=== PATIENT | male | born 1960 | race Caucasian/White ===

== ENCOUNTER → 2022-12-18 11:16 | Outpatient (BNVA) | payer OTHER, SELFPAY | PROVIDERS: PCP Internal Medicine; Visit Provider Nurse Practitioner Family | DX: R35.0 Frequency of micturition (principal); R97.20 Elevated prostate specific antigen [PSA]; Z87.898 Personal history of other specified conditions | CPT/HCPCS: 99202 ==

== ENCOUNTER 2023-01-02 09:49 | Outpatient (REF) | payer OTHER, SELFPAY ==
--- NOTE | ~2023-01-02 | US_ITS ---
EXAMINATION: US RETROPERITONEAL LIMITED (RENAL ONLY) CLINICAL INFORMATION: Frequency of micturition. COMPARISON: None available. TECHNIQUE: Real-time imaging of the kidneys. FINDINGS: RIGHT KIDNEY: 10.8 x 4.6 x 6.8 cm (SAG x AP x TRV). The kidney is normal in size, contour, and echogenicity. Renal cortical thickness is normal. No hydronephrosis. 3 mm nonobstructing calculus in the upper to midpole. Lateral midpole cyst measures 4 x 3 x 4 mm. LEFT KIDNEY: 11.0 x 7.6 x 5.1 cm (SAG x AP x TRV). The kidney is normal in size, contour, and echogenicity. Renal cortical thickness is normal. No calculi or focal parenchymal lesions. No hydronephrosis. US/US renal BI IMPRESSION: 3 mm nonobstructing right renal calculus. No hydronephrosis. Right renal cyst. No suspicious features.
== END 2023-01-02 09:50 | disposition home or self-care (01) ==
LOC: HO.US 09:49
PROVIDERS: PCP Internal Medicine; Visit Provider Nurse Practitioner Family
DX: R35.0 Frequency of micturition (principal); R97.20 Elevated prostate specific antigen [PSA]; Z87.898 Personal history of other specified conditions
CPT/HCPCS: 76775

== ENCOUNTER 2023-01-13 13:11 | Outpatient (REF) | payer OTHER, SELFPAY ==
--- NOTE | ~2023-01-13 | US_ITS ---
EXAMINATION: US PELVIS LIMITED (BLADDER) CLINICAL INFORMATION: Urinary frequency. COMPARISON: Ultrasound retroperitoneal limited (renal only) 01/02/2023. TECHNIQUE: Real-time imaging of the bladder. FINDINGS: BLADDER: Well distended and normal. Bilateral ureteral jets are demonstrated. Prevoid bladder volume is 311.5 mL. Postvoid bladder volume is 11.5 mL. ADDITIONAL FINDINGS: Prostate is enlarged with a volume of 72.4 mL. US/US bladder IMPRESSION: Prostate is enlarged with a volume of 72.4 mL.
== END 2023-01-13 13:12 | disposition home or self-care (01) ==
LOC: HO.US 13:11
PROVIDERS: PCP Internal Medicine; Visit Provider Nurse Practitioner Family
DX: R35.0 Frequency of micturition (principal); R97.20 Elevated prostate specific antigen [PSA]; Z87.898 Personal history of other specified conditions
CPT/HCPCS: 76857

== ENCOUNTER 2023-02-04 16:00 | Outpatient (REF) | payer OTHER, SELFPAY ==
[2023-02-04 19:22] LABS: PSA,Total (Free>4and<10) 4.15 ng/mL (0.00-4.00)
[2023-02-07 11:43] LABS: Free Prostate Spec Ag 0.5 ng/mL; Percent Free Prostate Spec Ag 14 % (calc) (>25); Prostate Specific Ag Total 3.6 ng/mL (< OR = 4.0)
== END 2023-02-04 16:01 | disposition home or self-care (01) ==
LOC: HO.LAB 16:00
PROVIDERS: PCP Internal Medicine; Visit Provider Nurse Practitioner Family
DX: R35.0 Frequency of micturition (principal); R97.20 Elevated prostate specific antigen [PSA]; Z87.898 Personal history of other specified conditions
CPT/HCPCS: 36415; 84153; 84154

== ENCOUNTER 2023-04-02 10:00 | Outpatient (AMB) | payer OTHER, SELFPAY ==
--- NOTE | 2023-04-02 10:14 | A.OFFVIS_ITS ---
Intake Intake Visit Reasons: 6w/US/PSA(set) Intake Note: Patient presents for follow up visit Elevated PSA/labs/ultrasound (psa 4.15) (imaging 01/02 & 01/13) Urology Medications: none Blood Thinner: none [employer] Required: No Accompanied by: Self / Same As Patient Allergies No Known Allergies Allergy (Verified 04/02/23 12:36) Medication List - Last Reconciled 04/02/23 by CASTILLO HernandezP- amlodipine 5 mg PO DAILY diclofenac sodium 50 mg PO BID finasteride 5 mg PO DAILY 90 days tamsulosin 0.4 mg PO BEDTIME 30 days HPI HPI Comments History of Present Illness Details Prosper is a very pleasant 62-year-old male patient of Dr. Rich. He has a past medical history of hypertension and spontaneous pneumothora x. He presents to the office today for follow-up. Of note, patient was seen approximately 3 months ago as a new patient for an elevated PSA at which time redraw of PSA and retroperitoneal ultrasound was ordered for further assessment evaluation. These results reviewed with the patient today. The bladder is well distended and normal. Pre void bladder volume is approximately 315 mL postvoid bladder volume is approximately 10 mL. Prostate is enlarged with a volume of 72 mL. Right kidney with no hydronephrosis. 3 mm nonobstructing calculus is in the upper to mid pole. Lateral midpole cyst measures 4 x 3 x 4 mm. Left kidney with no calculi, lesions, and or hydronephrosis noted. PSAs are as follows: 10/27--4.9 02/26--3.6 % free--14% Discussed at length potential causes for elevated PSA. When asked patient does continue to report to have urinary hesitancy, urinary urgency, and urinary frequency. He discusses drinking only coffee all day long. He otherwise denies incontinence, nocturia, hematuria, dysuria, foul smelling urine, flank pain, fever, and or chills. When asked he does report to be smoking recreational marijuana daily. He does also report issues with maintaining erections Discussed at length affects of in adequate sleep, drugs, and unhealthy eating habits on erectile dysfunction as well as overall health and well-being. In office urinalysis results reviewed with the patient today. Discussed surveillance monitoring versus prostate biopsy. Discussed at length risks and benefits of surveillance monitoring versus prostate biopsy. He otherwise offers no issues or concerns at this time. [facility] Medical History Spontaneous pneumothorax Hypertension Review of Systems Const Reports as per HPI Eyes Reports no additional complaints ENT Reports no additional complaints Card Reports as per HPI Resp Reports no additional complaints GI Reports no additional complaints Reports as per HPI Musc Reports no additional complaints Neuro Reports no additional complaints Psych Reports no additional complaints Endo Reports no additional complaints Real/Lymph Reports no additional complaints Aller/Immun Reports no additional complaints Physical Exam Const General: cooperative, healthy appearing, comfortable, no acute distress, well developed, alert and awake Nutritional Appearance: thin Orientation/consciousness: patient oriented x3 HEENT Head: Yes normal to inspection, Yes normocephalic and Yes atraumatic Ears: hearing grossly normal bilaterally Eyes General: appearance normal, both eyes and all related structures Neck Neck: Yes normal visual inspection and Yes trachea midline Chest Chest palpation & inspection: normal inspection of the chest Resp Effort & Inspection: normal respiratory effort and able to speak in complete sentences Cardio Rate: regular rate GI Inspection: Yes normal to inspection General: Yes no CVA tenderness Back/Spine/Pelvis Back: no CVA tenderness Skin General skin exam: no rashes or lesions noted Neuro General: patient oriented x3 Extrem General: Yes normal to inspection Psych Appearance: grossly normal and well kempt Mental Status: mental status grossly normal Speech and movement: Normal speech and movement present and Clear speech present Affect: normal affect Attitude: cooperative Thought process: Normal thought process present Thought content: Normal thought content present Insight: Good insight present (Psych) Judgement: Good judgement present (Psych) Results Reviewed Results Reviewed: Date of Service: 01/13/23 EXAMINATION: US PELVIS LIMITED (BLADDER) FINDINGS: BLADDER: Well distended and normal. Bilateral ureteral jets are demonstrated. Prevoid bladder volume is 311.5 mL. Postvoid bladder volume is 11.5 mL. ADDITIONAL FINDINGS: Prostate is enlarged with a volume of 72.4 mL. IMPRESSION: Prostate is enlarged with a volume of 72.4 mL. ---- Date of Service: 01/02/23 EXAMINATION: US RETROPERITONEAL LIMITED (RENAL ONLY) FINDINGS: RIGHT KIDNEY: 10.8 x 4.6 x 6.8 cm (SAG x AP x TRV). The kidney is normal in size, contour, and echogenicity. Renal cortical thickness is normal. No hydronephrosis. 3 mm nonobstructing calculus in the upper to midpole. Lateral midpole cyst measures 4 x 3 x 4 mm. LEFT KIDNEY: 11.0 x 7.6 x 5.1 cm (SAG x AP x TRV). The kidney is normal in size, contour, and echogenicity. Renal cortical thickness is normal. No calculi or focal parenchymal lesions. No hydronephrosis. IMPRESSION: 3 mm nonobstructing right renal calculus. No hydronephrosis. Right renal cyst. No suspicious features. Assessment & Plan Assessment & Plan (1) Urinary frequency: Code(s): R35.0 - Frequency of micturition (2) History of urinary hesitancy: Code(s): Z87.898 - Personal history of other specified conditions (3) Elevated PSA: Code(s): R97.20 - Elevated prostate specific antigen [PSA] Plan In office urinalysis results reviewed with the patient today. Recent retroperitoneal ultrasound results reviewed with the patient today; as noted above. Start finasteride as discussed and prescribed. Start tamsulosin as discussed and prescribed. Discussed at length importance of limiting/quitting recreational marijuana for improvement in erectile dysfunction as well as overall health and well-being. Discussed lifestyle modifications to assist with erectile dysfunction. Recent PSA results reviewed with the patient today. Discussed at length potential causes for elevated PSA as well as further management with surveillance monitoring verses prostate biopsy at length. Follow-up in 6-8 weeks with PVR; or sooner with any issues, concerns, and or questions. Orders: Orders AMB Urinalysis Automated Today Z13.9 - Encounter for screening, unspecified Medications: New finasteride 5 mg PO DAILY 90 days 90 tabs 3RF N32.0 - Bladder-neck obstruction tamsulosin 0.4 mg PO BEDTIME 30 days 30 caps 1RF N40.1 - Benign prostatic hyperplasia with lower urinary tract symptoms, R35.1 - Nocturia Patient Instructions: The patient had an opportunity to ask questions regarding the treatment plan. All questions were answered. Physical exam, labs, and imaging were discussed and reviewed in detail. As well as risks, benefits, and discussion of treatment choices. No major barriers to understanding were identified. The patient expressed understanding and agreement with the above treatment plan. The patient was made aware they should contact our office by phone for worsening of their current condition, the appearance of new symptoms, or with any questions or concerns. Compliance is encouraged with any medications and follow up testing that is ordered. It is a privilege to be allowed the opportunity to participate in? your urological care.? Again, if you have any questions or concerns If you have any questions or concerns please do not hesitate to contact me. The office is [phone]. This note is constructed using voice recognition software. While every effort has been made to ensure accuracy rehabilitation medicine physician errors may have been included. Yours sincerely, QUAN Hernandez Coding Level of Care Code Est Pt Level 4 (38933) Diagnoses Urinary frequency R35.0 History of urinary hesitancy Z87.898 Elevated PSA R97.20
== END 2023-04-02 11:17 | disposition home or self-care (01) ==
PROVIDERS: PCP Internal Medicine; Visit Provider Nurse Practitioner Family
DX: Z13.9 Encounter for screening, unspecified (principal)
CPT/HCPCS: 99214

== ENCOUNTER → 2023-04-02 10:00 | Outpatient (BNVA) | payer OTHER, SELFPAY | PROVIDERS: PCP Internal Medicine; Visit Provider Nurse Practitioner Family | DX: R35.0 Frequency of micturition (principal); R97.20 Elevated prostate specific antigen [PSA]; Z87.898 Personal history of other specified conditions | CPT/HCPCS: 81003; 99212 ==

== ENCOUNTER 2023-07-04 14:52 | Outpatient (AMB) | payer OTHER, SELFPAY ==
--- NOTE | 2023-07-04 14:54 | A.OFFVIS_ITS ---
Intake Intake Visit Reasons: Follow up Intake Note: Patient presents for follow up visit Elevated PSA/urinary frequency Urology Medications: finasteride, tamsulosin Blood Thinner: none PVR: 91ml's Runner On Required: No Accompanied by: Self / Same As Patient Allergies No Known Allergies Allergy (Verified 04/02/23 12:36) Medication List - Last Reconciled 07/05/23 by Jumana Hernandez [employer]- amlodipine 5 mg PO DAILY diclofenac sodium 50 mg PO BID finasteride 5 mg PO DAILY 90 days tamsulosin 0.4 mg PO BEDTIME 90 days HPI HPI Comments History of Present Illness Details Mac is a very pleasant 62-year-old male patient of Dr. Rich who was accompanied by his significant other at today's office visit. He has a p ast medical history of hypertension and spontaneous pneumothorax. He presents to the office today for follow-up. In discussion with the patient today reports to be doing and feeling well. He reports having ran out of refills on his Flomax and has since been experiencing lower urinary tract symptoms of urinary hesitancy, urinary urgency, and urinary frequency. It appears previous follow- up was missed as the patient was in [place] and has since ran out of refills on his medications. He reports prior to running out of his urological medications he had been happy with his voiding parameters. Previous workup has included a retroperitoneal ultrasound noting the bladder is well distended and normal. Pre void bladder volume is approximately 315 mL postvoid bladder volume is approximately 10 mL. Prostate is enlarged with a volume of 72 mL. Right kidney with no hydronephrosis. 3 mm nonobstructing calculus is in the upper to mid pole. Lateral midpole cyst measures 4 x 3 x 4 mm. Left kidney with no calculi, lesions, and or hydronephrosis noted. PSAs are as follows: 10/27--4.9 02/26--3.6 % free--14% Discussed at length importance of following up as planned. It appears PSA was ordered however not obtained. Discussed and stressed the importance in doing so. In office urinalysis results reviewed with the patient today. PVR 91 mL. He otherwise denies incontinence, nocturia, hematuria, dysuria, foul smelling urine, flank pain, fever, and or chills. When asked he does report to be smoking recreational marijuana daily. He does also report issues with maintaining erections. Discussed at length affects of in adequate sleep, drugs, and unhealthy eating habits on erectile dysfunction as well as overall health and well-being. He otherwise offers no issues or concerns at this time. [facility] Medical History Spontaneous pneumothorax Hypertension Review of Systems Const Reports as per HPI Eyes Reports no additional complaints ENT Reports no additional complaints Card Reports as per HPI Resp Reports no additional complaints GI Reports no additional complaints Reports as per HPI Musc Reports no additional complaints Neuro Reports no additional complaints Psych Reports no additional complaints Endo Reports no additional complaints Real/Lymph Reports no additional complaints Aller/Immun Reports no additional complaints Physical Exam Const General: cooperative, healthy appearing, comfortable, no acute distress, well d eveloped, alert and awake Nutritional Appearance: thin Orientation/consciousness: patient oriented x3 HEENT Head: Yes normal to inspection, Yes normocephalic and Yes atraumatic Ears: hearing grossly normal bilaterally Eyes General: appearance normal, both eyes and all related structures Neck Neck: Yes normal visual inspection and Yes trachea midline Chest Chest palpation & inspection: normal inspection of the chest Resp Effort & Inspection: normal respiratory effort and able to speak in complete sentences Cardio Rate: regular rate GI Inspection: Yes normal to inspection General: Yes no CVA tenderness Back/Spine/Pelvis Back: no CVA tenderness Skin General skin exam: no rashes or lesions noted Neuro General: patient oriented x3 Extrem General: Yes normal to inspection Psych Appearance: grossly normal and well kempt Mental Status: mental status grossly normal Speech and movement: Normal speech and movement present and Clear speech present Affect: normal affect Attitude: cooperative Thought process: Normal thought process present Thought content: Normal thought content present Insight: Good insight present (Psych) Judgement: Good judgement present (Psych) Office Procedures Post Void Residual Post Residual Void Post Void Residual (PVR): 91 [id number] Void Residual by ultrasound Assessment & Plan Assessment & Plan (1) Elevated PSA: Code(s): R97.20 - Elevated prostate specific antigen [PSA] (2) Urinary frequency: Code(s): R35.0 - Frequency of micturition (3) History of urinary hesitancy: Code(s): Z87.898 - Personal history of other specified conditions Plan In office urinalysis results reviewed with the patient today. PVR 91 mL. Continue finasteride and Flomax as prescribed; refills provided. Discussed and stressed the importance of following up as planned. Discussed and stressed the importance of obtaining PSA as discussed. Discussed at length importance of limiting/quitting recreational marijuana for improvement in erectile dysfunction as well as overall health and well-being. Discussed lifestyle modifications to assist with erectile dysfunction. Follow-up in 2-4 weeks with PSA to be completed prior; or sooner with any issues, concerns, and or questions. Follow-up in 6-8 weeks with PVR; or sooner with any issues, concerns, and or questions. Orders: Orders Prostate Specific Antigen 07/04/23 R97.20 - Elevated prostate specific antigen [PSA] AMB Post Void Residual by ultrasound 07/04/23 R35.0 - Frequency of micturition Medications: Changed From tamsulosin 0.4 mg PO BEDTIME 30 days 30 caps 1RF N40.1 - Benign prostatic hyperplasia with lower urinary tract symptoms, R35.1 - Nocturia To tamsulosin 0.4 mg PO BEDTIME 90 days 90 caps 1RF N40.1 - Benign prostatic hyperplasia with lower urinary tract symptoms, R35.1 - Nocturia Patient Instructions: The patient had an opportunity to ask questions regarding the treatment plan. All questions were answered. Physical exam, labs, and imaging were discussed and reviewed in detail. As well as risks, benefits, and discussion of treatment choices. No major barriers to understanding were identified. The patient expressed understanding and agreement with the above treatment plan. The patient was made aware they should contact our office by phone for worsening of their current condition, the appearance of new symptoms, or with any questions or concerns. Compliance is encouraged with any medications and follow up testing that is ordered. It is a privilege to be allowed the opportunity to participate in? your urological care.? Again, if you have any questions or concerns If you have any questions or concerns please do not hesitate to contact me. The office is [phone]. This note is constructed using voice recognition software. While every effort has been made to ensure accuracy gambreler errors may have been included. Yours sincerely, QUAN Hernandez Coding Level of Care Code Est Pt Level 3 (85864) Diagnoses Elevated PSA R97.20 Urinary frequency R35.0 History of urinary hesitancy Z87.898 CPT Codes Post Residual Void - PVR CPT Code: 68290-Paps Void Residual by ultrasound ([id number])
== END 2023-07-04 15:50 | disposition home or self-care (01) ==
PROVIDERS: PCP Internal Medicine; Visit Provider Nurse Practitioner Family
DX: R97.20 Elevated prostate specific antigen [PSA] (principal); R35.0 Frequency of micturition; Z87.898 Personal history of other specified conditions
CPT/HCPCS: 99213

== ENCOUNTER → 2023-07-04 14:52 | Outpatient (BNVA) | payer OTHER, SELFPAY | PROVIDERS: PCP Internal Medicine; Visit Provider Nurse Practitioner Family | DX: R97.20 Elevated prostate specific antigen [PSA] (principal); R35.0 Frequency of micturition; Z87.898 Personal history of other specified conditions; Z79.899 Other long term (current) drug therapy | CPT/HCPCS: 51798; 99212 ==

== ENCOUNTER 2023-08-01 13:35 | Outpatient (AMB) | payer OTHER, SELFPAY ==
--- NOTE | 2023-08-01 13:43 | A.OFFVIS_ITS ---
Intake Intake Visit Reasons: 4w/PSA(set) Intake Note: Patient presents today for a follow-up on: PSA Meds- Finasteride , Tamsulosin Allergies to Antibiotic- No Known Allergies Blood Thinner- None Post Void Residual:22 Sanitary Chemist Required: No Accompanied by: Significant Other Allergies No Known Allergies Allergy (Verified 08/02/23 16:46) Medication List - Last Reconciled 08/02/23 by BELA Hernandez- amlodipine 5 mg PO DAILY diclofenac sodium 50 mg PO BID finasteride 5 mg PO DAILY 90 days tamsulosin 0.4 mg PO BEDTIME 90 days HPI HPI Comments History of Present Illness Details Mac is a very pleasant 62-year-old male patient of Dr. Rich who was accompanied by his significant other at today's office visit. He has a past medical history of hypertension and spontaneous pneumothorax. He presents to the office today for follow-up. In discussion with the patient today reports to be doing and feeling well. He reports compliance with 0.4 mg of Flomax and 5 mg of finasteride daily. Recent PSA results reviewed with the patient and his significant other today as noted and trended below. He reports feeling happy with his current voiding parameters on 0.4 mg of Flomax daily. He reports noting a difference in urinary symptoms when not taking medication. He discusses his upcoming trip to [place] to visit his significant others son. Previous workup has included a retroperitoneal ultrasound noting the bladder is well distended and normal. Pre void bladder volume is approximately 315 mL postvoid bladder volume is approximately 10 mL. Prostate is enlarged with a volume of 72 mL. Right kidney with no hydronephrosis. 3 mm nonobstructing calculus is in the upper to mid pole. Lateral midpole cyst measures 4 x 3 x 4 mm. Left kidney with no calculi, lesions, and or hydronephrosis noted. 10/27--4.9 02/26--3.6 % free--14% 07/30--2.4 In office urinalysis results reviewed with the patient today. PVR 22 mL. He otherwise denies incontinence, nocturia, hematuria, dysuria, foul smelling urine, flank pain, fever, and or chills. He otherwise offers no issues or concerns at this time. [facility] Medical History Spontaneous pneumothorax Hypertension Review of Systems Const Reports as per HPI Eyes Reports no additional complaints ENT Reports no additional complaints Card Reports as per HPI Resp Reports no additional complaints GI Reports no additional complaints Reports as per HPI Musc Reports no additional complaints Neuro Reports no additional complaints Psych Reports no additional complaints Endo Reports no additional complaints Real/Lymph Reports no additional complaints Aller/Immun Reports no additional complaints Physical Exam Const General: cooperative, healthy appearing, comfortable, no acute distress, well developed, alert and awake Nutritional Appearance: thin Orientation/consciousness: patient oriented x3 HEENT Head: Yes normal to inspection, Yes normocephalic and Yes atraumatic Ears: hearing grossly normal bilaterally Eyes General: appearance normal, both eyes and all related structures Neck Neck: Yes normal visual inspection and Yes trachea midline Chest Chest palpation & inspection: normal inspection of the chest Resp Effort & Inspection: normal respiratory effort and able to speak in complete sentences Cardio Rate: regular rate GI Inspection: Yes normal to inspection General: Yes no CVA tenderness Back/Spine/Pelvis Back: no CVA tenderness Skin General skin exam: no rashes or lesions noted Neuro General: patient oriented x3 Extrem General: Yes normal to inspection Psych Appearance: grossly normal and well kempt Mental Status: mental status grossly normal Speech and movement: Normal speech and movement present and Clear speech present Affect: normal affect Attitude: cooperative Thought process: Normal thought process present Thought content: Normal thought content present Insight: Good insight present (Psych) Judgement: Good judgement present (Psych) Results AMB Urinalysis, Automated UA Leukoctes 0 Raheem/uL Last Edit by Dorcas Freire CMA on 08/01/23 13 :55 UA Nitrite Negative Last Edit by Dorcas Freire CMA on 08/01/23 13: 55 UA Urobilinogen 0.2 mg/dL Last Edit by Dorcas Freire CMA on 4 13:55 UA Protein 15 mg/dL Last Edit by Dorcas Freire CMA on 08/01/23 13:5 5 UA pH 6.0 Last Edit by Dorcas Freire [facility] on 08/01/23 13:55 UA Blood 0 David/uL Last Edit by Dorcas Freire [facility] on 08/01/23 13:55 UA Specific [place] 1.030 Last Edit by Dorcas Freire, [facility] on 13:55 UA Ketone Negative Last Edit by Dorcas Freire [facility] on 08/01/23 13:5 5 UA Bilirubin 0 mg/dL Last Edit by Dorcas Freire [facility] on 08/01/23 13: 55 UA Glucose 0 mg/dL Last Edit by Dorcas Freire [facility] on 08/01/23 13:55 Results Reviewed Results Reviewed: Laboratory Last Values Urine pH (Auto) 6.0 08/01/23 13:53 Specific [place] (Auto) 1.030 08/01/23 13:53 Urine Protein (Auto) 15 mg/dL 08/01/23 13:53 Glucose (UA)(Auto) 0 mg/dL 08/01/23 13:53 Urine Ketones (Auto) Negative 08/01/23 13:53 Urine Blood (Auto) 0 David/uL 08/01/23 13:53 Urine Nitrite (Auto) Negative 08/01/23 13:53 Urine Bilirubin (Auto) 0 mg/dL 08/01/23 13:53 Urine Urobilinogen (Auto) 0.2 mg/dL 08/01/23 13:53 Leukocyte Esterase (Auto) 0 Raheem/uL 08/01/23 13:53 Assessment & Plan Assessment & Plan (1) Elevated PSA: Code(s): R97.20 - Elevated prostate specific antigen [PSA] (2) Urinary frequency: Code(s): R35.0 - Frequency of micturition (3) History of urinary hesitancy: Code(s): Z87.898 - Personal history of other specified conditions Plan In office urinalysis results reviewed with the patient today; as noted above. PVR 22 mL. Recent PSA results reviewed with the patient today; as noted above. Continue Flomax and finasteride as discussed and prescribed. Discussed potential near future in office cystoscopy for further assessment evaluation. He currently denies any bothersome urinary issues or concerns. He reports be happy with current voiding parameters on 0.4 mg of Flomax daily. Will obtain PSA in 6 months. Follow-up in 6 months with lab to be completed prior; or sooner with any issues, concerns, and or questions. Orders: Orders Prostate Specific Antigen 6 Months R97.20 - Elevated prostate specific antigen [PSA] AMB Urinalysis Automated 08/01/23 R33.9 - Retention of urine, unspecified AMB Post Void Residual by ultrasound 08/01/23 R33.9 - Retention of urine, unspecified, R35.0 - Frequency of micturition Patient Instructions: The patient had an opportunity to ask questions regarding the treatment plan. All questions were answered. Physical exam, labs, and imaging were discussed and reviewed in detail. As well as risks, benefits, and discussion of treatment choices. No major barriers to understanding were identified. The patient expressed understanding and agreement with the above treatment plan. The patient was made aware they should contact our office by phone for worsening of their current condition, the appearance of new symptoms, or with any questions or concerns. Compliance is encouraged with any medications and follow up testing that is ordered. It is a privilege to be allowed the opportunity to participate in? your urological care.? Again, if you have any questions or concerns If you have any questions or concerns please do not hesitate to contact me. The office is [phone]. This note is constructed using voice recognition software. While every effort has been made to ensure accuracy research associate policy errors may have been included. Yours sincerely, QUAN Hernandez Coding Level of Care Code Est Pt Level 3 (15818) Diagnoses Elevated PSA R97.20 Urinary frequency R35.0 History of urinary hesitancy Z87.898
== END 2023-08-01 14:25 | disposition home or self-care (01) ==
PROVIDERS: PCP Internal Medicine; Visit Provider Nurse Practitioner Family
DX: R97.20 Elevated prostate specific antigen [PSA] (principal); R35.0 Frequency of micturition; Z87.898 Personal history of other specified conditions
CPT/HCPCS: 99213

== ENCOUNTER → 2023-08-01 13:35 | Outpatient (BNVA) | payer OTHER, SELFPAY | PROVIDERS: PCP Internal Medicine; Visit Provider Nurse Practitioner Family | DX: R97.20 Elevated prostate specific antigen [PSA] (principal); R35.0 Frequency of micturition; R33.9 Retention of urine, unspecified; Z87.898 Personal history of other specified conditions | CPT/HCPCS: 81003; 99212 ==

== ENCOUNTER 2024-03-18 09:54 | Outpatient (AMB) | payer OTHER, SELFPAY ==
--- NOTE | 2024-03-18 09:54 | A.OFFVIS_ITS ---
Intake Visit Reasons: 6m/PSA(set) Intake Note: Patient presents today for a follow-up on: frequency, elevated psa, and psa results PSA: 5.0 Meds- Finasteride Allergies to Antibiotic- No Known Allergies Blood Thinner- None Post Void Residual: 31ml's Manager Acquisition Required: No Accompanied by: Self / Same As Patient Allergies No Known Allergies Allergy (Verified 03/18/24 11:14) Medication List - Last Reconciled 03/18/24 by BELA Hernandez- amlodipine 5 mg PO DAILY diclofenac sodium 50 mg PO BID finasteride 5 mg PO DAILY 90 days levofloxacin 500 mg PO daily 3 days HPI Comments Details: Mac is a very pleasant 63-year-old male patient of Dr. Rich. He has a past medical history of hypertension and spontaneous pneumothorax. He presents to the office today for follow-up of his elevated PSA and lower urinary tract symptoms. In discussion with the patient today reports to be doing and feeling well. Recent PSA results reviewed with the patient today as noted and trended below. When asked he does report compliance with finasteride daily. We discussed increase in PSA despite patient reporting compliance with finasteride. Discussed obtaining redraw of PSA. He currently denies any bothersome urinary issues or concerns. In office urinalysis results reviewed with the patient today. Previous workup has included a retroperitoneal ultrasound noting the bladder is well distended and normal. Pre void bladder volume is approximately 315 mL postvoid bladder volume is approximately 10 mL. Prostate is enlarged with a volume of 72 mL. Right kidney with no hydronephrosis. 3 mm nonobstructing calculus is in the upper to mid pole. Lateral midpole cyst measures 4 x 3 x 4 mm. Left kidney with no calculi, lesions, and or hydronephrosis noted. 10/27 4.9 02/26--3.6 % free 14%, 07/30 2.4, 01/27 5.0 We discussed at length potential causes of increase in PSA. We discussed redraw of PSA with no sex the night before, no caffeine morning of, and no heavy lifting 1-2 days prior. Discussed at length treatment options to include redraw of PSA verses prostate biopsy verses MRI of the prostate versus surveillance monitoring. Risks and benefits of these interventions were discussed. Patient would like to redraw PSA and will schedule for prostate biopsy tentatively however will await redraw of PSA and further assess. He otherwise denies any bothersome urinary issues or concerns. He reports having stop Flomax as he feels lower urinary tract symptoms have somewhat improved. He denies urinary urgency, urinary frequency, incontinence, nocturia, hematuria, dysuria, foul smelling urine, changes to urinary stream, flank pain, fever, and or chills. He is happy with his current voiding parameters. [facility] Medical History Spontaneous pneumothorax Hypertension Review of Systems Const Reports as per HPI Eyes Reports no additional complaints ENT Reports no additional complaints Card Reports as per HPI Resp Reports no additional complaints GI Reports no additional complaints Reports as per HPI Musc Reports no additional complaints Neuro Reports no additional complaints Psych Reports no additional complaints Endo Reports no additional complaints Real/Lymph Reports no additional complaints Aller/Immun Reports no additional complaints Physical Exam Const General: cooperative, healthy appearing, comfortable, no acute distress, well developed, alert and awake Nutritional Appearance: thin Orientation/consciousness: patient oriented x3 HEENT Head: Yes normal to inspection, Yes normocephalic and Yes atraumatic Ears: hearing grossly normal bilaterally Eyes General: appearance normal, both eyes and all related structures Neck Neck: Yes normal visual inspection and Yes trachea midline Chest Chest palpation & inspection: normal inspection of the chest Resp Effort & Inspection: normal respiratory effort and able to speak in complete sentences Cardio Rate: regular rate GI Inspection: Yes normal to inspection General: Yes no CVA tenderness Back/Spine/Pelvis Back: no CVA tenderness Skin General skin exam: no rashes or lesions noted Neuro General: patient oriented x3 Extrem General: Yes normal to inspection Psych Appearance: grossly normal and well kempt Mental Status: mental status grossly normal Speech and movement: Normal speech and movement present and Clear speech present Affect: normal affect Attitude: cooperative Thought process: Normal thought process present Thought content: Normal thought content present Insight: Good insight present (Psych) Judgement: Good judgement present (Psych) Office Procedures Post Void Residual Post Residual Void Post Void Residual (PVR): 31 [id number]-Diso Void Residual by ultrasound Results AMB Urinalysis, Automated UA Leukoctes 0 Raheem/uL Last Edit by Sean Calloway on 03/18/24 10:12 UA Nitrite Last Edit by Sean Calloway on 03/18/24 10:12 UA Urobilinogen 0.2 mg/dL Last Edit by Sean Calloway on 03/18/24 10:12 UA Protein 15 mg/dL Last Edit by Numascaleda Calloway on 03/18/24 10:12 UA pH 6.0 Last Edit by [employer] on 03/18/24 10:12 UA Blood 0 David/uL Last Edit by Numascaleda Calloway on 03/18/24 10:12 UA Specific [place] 1.015 Last Edit by Sean Calloway on 03/18/24 10:12 UA Ketone Last Edit by Sean Calloway on 03/18/24 10:12 UA Bilirubin 0 mg/dL Last Edit by Numascaleda Calloway on 03/18/24 10:12 UA Glucose 0 mg/dL Last Edit by Agradisbrad [employer] on 03/18/24 10:12 Results Reviewed Results Reviewed: Laboratory Last Values Urine pH (Auto) 6.0 03/18/24 10:02 Specific [place] (Auto) 1.015 03/18/24 10:02 Urine Protein (Auto) 15 mg/dL 03/18/24 10:02 Glucose (UA)(Auto) 0 mg/dL 03/18/24 10:02 Urine Blood (Auto) 0 David/uL 03/18/24 10:02 Urine Bilirubin (Auto) 0 mg/dL 03/18/24 10:02 Urine Urobilinogen (Auto) 0.2 mg/dL 03/18/24 10:02 Leukocyte Esterase (Auto) 0 Raheem/uL 03/18/24 10:02 Assessment & Plan Assessment & Plan (1) Elevated PSA: Code(s): R97.20 - Elevated prostate specific antigen [PSA] Category: Medical Plan: Plan Risks and benefits regarding trans rectal ultrasound with prostate biopsy were discussed.? Options of continued surveillance, no treatment and biopsy were offered. The risks include but are not limited to, urinary tract infection, sepsis, difficulty urinating, bleeding into the rectum or bladder that requires intervention and transfusion,and failure to diagnose prostate cancer. The patient understands the options and the risks involved. They wish to proceed. Printed information was provided to ensure he remains off anticoagulation for the appropriate length of time. He may require cardiology or PCP clearance.? An antibiotic will be administered prior to, and following the procedure Plan In office urinalysis results reviewed with the patient today; as noted above. Recent PSA results reviewed with the patient today; as noted above. Discussed increase in PSA; discussed potential causes of elevated PSA. Patient currently denies any bothersome urinary issues or concerns. Patient reports compliance with finasteride as prescribed stop Flomax as patient reports significant improvement lower urinary tract symptoms he had been experiencing. Will redraw PSA with no sex the night before, no caffeine morning of, and no heavy lifting 1-2 days prior. Discussed further treatment options to include redraw of PSA verses MRI of the prostate verses surveillance monitoring verses prostate biopsy; risks and benefits of these interventions were discussed. Will obtain redraw of PSA and tentatively schedule for prostate biopsy as discussed and plan. Follow-up per doctor's orders or sooner with any issues, concerns, and or questions. Orders: Orders AMB Post Void Residual by ultrasound Today R35.0 - Frequency of micturition PSA,Total (Free>4and<10) Today R97.20 - Elevated prostate specific antigen [PSA] AMB Urinalysis Automated Today Z13.9 - Encounter for screening, unspecified Medications: New levofloxacin take 1 tablet day before procedure, 1 tablet day of procedure and 1 tablet day after procedure 500 mg PO daily 3 days 3 tabs 0RF Discontinued tamsulosin Discontinued Reason: Doctor's Order 0.4 mg PO BEDTIME 90 days 90 caps 1RF N40.1 - Benign prostatic hyperplasia with lower urinary tract symptoms, R35.1 - Nocturia Patient Instructions: The patient had an opportunity to ask questions regarding the treatment plan. All questions were answered. Physical exam, labs, and imaging were discussed and reviewed in detail. As well as risks, benefits, and discussion of treatment choices. No major barriers to understanding were identified. The patient expressed understanding and agreement with the above treatment plan. The patient was made aware they should contact our office by phone for worsening of their current condition, the appearance of new symptoms, or with any questions or concerns. Compliance is encouraged with any medications and follow up testing that is ordered. It is a privilege to be allowed the opportunity to participate in? your urological care.? Again, if you have any questions or concerns If you have any questions or concerns please do not hesitate to contact me. The office is [phone]. This note is constructed using voice recognition software. While every effort has been made to ensure accuracy event specialist food demonstrator errors may have been included. Yours sincerely, BELA Hernandez-RAJEEV Coding Level of Care Code Est Pt Level 4 (99692) Diagnoses Elevated PSA R97.20 CPT Codes Post Residual Void - PVR CPT Code: 28529-Czgd Void Residual by ultrasound ([id number])
== END 2024-03-18 10:27 | disposition home or self-care (01) ==
LOC: HO.HUSH 09:54
PROVIDERS: PCP Internal Medicine; Visit Provider Nurse Practitioner Family
DX: R97.20 Elevated prostate specific antigen [PSA] (principal); Z13.9 Encounter for screening, unspecified
CPT/HCPCS: 99214

== ENCOUNTER → 2024-03-18 09:54 | Outpatient (BNVA) | payer OTHER, SELFPAY | PROVIDERS: PCP Internal Medicine; Visit Provider Nurse Practitioner Family | DX: R97.20 Elevated prostate specific antigen [PSA] (principal) | CPT/HCPCS: 51798; 81003; 99212 ==

== ENCOUNTER 2024-04-27 09:28 | Outpatient (REF) | payer OTHER, SELFPAY ==
[2024-04-27 11:15] LABS: PSA,Total (Free>4and<10) 6.99 ng/mL (0.00-4.00)
[2024-04-29 10:23] LABS: Free Prostate Spec Ag 0.7 ng/mL; Percent Free Prostate Spec Ag 11 % (calc) (>25); Prostate Specific Ag Total 6.2 ng/mL (< OR = 4.0)
== END 2024-04-27 09:29 | disposition home or self-care (01) ==
LOC: HO.LAB 09:28
PROVIDERS: PCP Internal Medicine; Visit Provider Nurse Practitioner Family
DX: R97.20 Elevated prostate specific antigen [PSA] (principal)
CPT/HCPCS: 36415; 84153; 84154

== ENCOUNTER 2024-04-29 | Outpatient (REF) | payer OTHER, SELFPAY ==
[2024-04-29] MEDS: Lidocaine HCl 1 % MPF 5 ML VIAL SUBCUT (08:45)
--- NOTE | 2024-04-29 09:57 | W.PM.OPN ---
Operative Note Operative Note Date of Service: 04/29/24 Narrative: Preoperative diagnosis: Elevated PSA Postoperative diagnosis: Elevated PSA Procedure: 1. transrectal ultrasound measurement of prostate 2. transrectal ultrasound-guided pudendal nerve block 3. transrectal ultrasound-guided prostate biopsy 12 core Surgeon: Dr. Yordan Garza Anesthetic: 10cc 1% lidocaine Indications for procedure: Elevated PSA 6.9 rising despite finasteride, free 14% Counselling: Technical aspects, risks and benefits of proposed procedure were discussed in full. All questions have been answered, written consent has been obtained and patient agrees to proceed. Procedure: The patient was brought into the procedure area and placed in a left lateral decubitus position. Patient identity confirmed. Perioperative antibiotics confirmed. Safety pause time out performed. CHRISTIAN was performed to dilate rectal sphincter Iodine 10cc with 60 cc gel was placed per rectum to reduce infection risk using a catheter tip syringe. 8 Hz Ritchie rectal end-fire ultrasound probe was placed transrectally without difficulty. The prostate was visualized. Seminal vesicles were normal. Prostate margins were clearly demarcated. Bladder was seen superiorly. No cystic structures were noted Minor calcifications were noted at the surgical margin The prostate was otherwise homogeneous in nature - no definitive Will seen in either peripheral zone or transition zone The prostate was measured in 3 dimensions Prostatic Width: 4.2 cm Prostatic Height: 3.7 cm Urethral Length: 4.3 cm Total volume equals : 35 ml An ultrasound-guided pudendal nerve block was performed using a 22 gauge spinal needle in the sagittal plane. 4 cc of 1% lidocaine placed at the junction of each seminal vesicle and 2 cc placed at the apex of the prostate. A 12 core biopsy was performed with 6 cores each side using an 18 gauge prostate biopsy gun. Two cores each were taken at the prostate apex, mid and base on each side. Cores were spaced between lateral and medial aspects. Each core was examined as placed on specimen foam as part of manufacturing quality technician to ensure a minimum 1 cm of length and minimal discontinuity. He tolerated the procedure well with minimal rectal bleeding. Blood pressure remained stable following procedure. He was able to ambulate to bathroom after 5 minutes. Printed instructions regarding antibiotic use and common adverse events from the procedure such as low-grade temperature, potential infection and bleeding were given. He understands to call the office or go to an emergency room should any of these events arise. Pathology: 12 core prostate biopsy. CPT code 66937: Transrectal ultrasound; this is a diagnostic test for evaluation of the prostate and surrounding structures, looking for abnormalities or suspicious areas worrisome for cancer CPT code 22174: Biopsy, prostate; needle or punch, single or multiple, any approach CPT code 32645: Ultrasonic guidance for needle placement (eg, biopsy, aspiration, injection, localization device), imaging supervision and interpretation
== END 2024-04-29 00:01 | disposition home or self-care (01) ==
LOC: HO.US
PROVIDERS: PCP Internal Medicine; Visit Provider Urology
DX: R97.20 Elevated prostate specific antigen [PSA] (principal); N42.31 Prostatic intraepithelial neoplasia
CPT/HCPCS: 55700; 76942; 88305; 88344; J2003

== ENCOUNTER → 2024-04-29 08:00 | Outpatient (BNV) | payer OTHER, SELFPAY | PROVIDERS: PCP Internal Medicine; Visit Provider Urology | DX: R97.20 Elevated prostate specific antigen [PSA] (principal) | CPT/HCPCS: 55700; 76872; 76942 ==

== ENCOUNTER 2024-05-12 14:00 | Outpatient (AMB) | payer OTHER, SELFPAY ==
--- NOTE | 2024-05-12 13:47 | MHC.OFFVIS ---
Intake Visit Reasons: Prostate biopsy results Intake Note: Patient is present for PROSTATE BIOPSY Urology Medication:FINASTERIDE Antibiotic Allergy:NONE Blood Thinner:NONE Mold Preparer Required: No Allergies No Known Allergies Allergy (Verified 05/12/24 13:48) HPI Comments Details: Mac is a pleasant male. He is a patient Dr. Rich. He seen for the following urologic conditions - lower urinary tract symptoms - elevated PSA Discussion regarding post prostate biopsy Taken for increasing PSA through finasteride Tolerated biopsy well Biopsy negative Six-month follow-up PSA with nurse-practitioner Lower urinary tract symptoms Managed with finasteride PSA 10/27 4.9 02/26--3.6 % free 14%, 07/30 2.4, 01/27 5.0, 04/29 6.2 11% Ultrasound of bladder shows 70 g prostate Prostate Biopsy 04/29 [facility] Medical History Spontaneous pneumothorax Hypertension Telehealth Telehealth Telehealth Platform: [facility] Location of provider rendering services: practice address Location of patient: address on file Patient Identification confirmed using: Name, : Yes Telehealth method: video Patient verbally consented to treatment: Yes Patient verbally consented to billing insurance company: Yes Patient informed of any privacy concerns related to visit: Yes Minutes spent on Phone/Video with Pt.: 15 Assessment & Plan Assessment & Plan (1) Elevated PSA: Code(s): R97.20 - Elevated prostate specific antigen [PSA] Category: Medical (2) Bladder outlet obstruction: Code(s): N32.0 - Bladder-neck obstruction Category: Medical Plan finasteride 6m PSA Orders: Orders PSA,Total (Free>4and<10) 6 Months N32.0 - Bladder-neck obstruction Patient Instructions: Imaging studies, laboratory and physical exam results were discussed and reviewed in detail. No major barriers to patient understanding were identified. An opportunity to ask questions regarding the treatment plan was provided. All questions were answered. The patient expressed understanding and agreement with the above treatment plan. The patient is aware they should contact our office by phone for worsening of their current condition or the appearance of new urologic symptoms. Compliance is encouraged with any medications and followup testing that is ordered. It is a privilege to participate in the urologic care of your patient. If you have any questions or concerns regarding treatment for the above conditions, or other urologic issues, please do not hesitate to contact me. The office telephone contact is [phone]. This note is constructed using voice recognition software. While every effort has been made to ensure accuracy motor and generator assembler errors may have been included. Yours sincerely, Dr Yordan Garza MD, [facility] Urology Providers of Expert, Compassionate Care for the Genitourinary System Coding Level of Care Code Tele Est Pt Level 3 (31141) Diagnoses Elevated PSA R97.20 Bladder outlet obstruction N32.0
== END 2024-05-12 14:31 | disposition home or self-care (01) ==
LOC: HO.HUSH 14:00
PROVIDERS: PCP Internal Medicine; Visit Provider Urology
DX: R97.20 Elevated prostate specific antigen [PSA] (principal); N32.0 Bladder-neck obstruction
CPT/HCPCS: 99213

== ENCOUNTER 2025-02-17 06:35 | Outpatient (REF) | payer OTHER, SELFPAY ==
[2025-02-17 08:41] LABS: PSA,Total (Free>4and<10) 7.19 ng/mL (0.00-4.00)
[2025-02-18 13:13] LABS: Free Prostate Spec Ag 0.6 ng/mL; Percent Free Prostate Spec Ag 10 % (calc) (>25)
== END 2025-02-17 06:36 | disposition home or self-care (01) ==
LOC: HO.LAB 06:35
PROVIDERS: PCP Internal Medicine; Visit Provider Urology
DX: N32.0 Bladder-neck obstruction (principal)
CPT/HCPCS: 36415; 84153; 84154

== ENCOUNTER 2025-02-28 11:18 | Outpatient (AMB) | payer OTHER, SELFPAY ==
--- NOTE | 2025-02-28 11:22 | A.OFFVIS_ITS ---
Intake Visit Reasons: 6m/PSA Intake Note: Patient is present for 6m/PSA * PSA:0.6 Urology Medication:FINASTERIDE Antibiotic Allergy:NONE Blood Thinner:NONE Business Developer Required: No Allergies No Known Allergies Allergy (Verified 02/28/25 11:54) Medication List - Last Reconciled 02/28/25 by BELA Hernandez- amlodipine 5 mg PO DAILY finasteride 5 mg PO DAILY 90 days HPI Comments Details: Mac is a very pleasant 64-year-old male patient of Dr. Rich. He has a past medical history of hypertension and spontaneous pneumothorax. He presents to the office today for follow-up of his elevated PSA and lower urinary tract symptoms. In discussion with the patient today reports to be doing and feeling well. He reports compliance with finasteride as prescribed. He currently denies any bothersome urinary issues or concerns. Recent PSA results reviewed with the patient today as noted and trended below. Of note, patient underwent prostate biopsy with Dr. Garza 04/29 [facility]. Previous workup has also included a retroperitoneal ultrasound 12/27 noting the bladder is well distended and normal. Pre void bladder volume is approximately 315 mL postvoid bladder volume is approximately 10 mL. Prostate is enlarged with a volume of 72 mL. Right kidney with no hydronephrosis. 3 mm nonobstructing calculus is in the upper to mid pole. Lateral midpole cyst measures 4 x 3 x 4 mm. Left kidney with no calculi, lesions, and or hydronephrosis noted. 10/27 4.9 02/26--3.6 % free 14%, 07/30 2.4, 01/27 5.0, 02/28 7.2 % free PSA 10% We discussed at length potential causes of increase in PSA. We discussed further treatment options and risks and benefits of these treatment options. He denies urinary urgency, urinary frequency, incontinence, nocturia, hematuria, dysuria, foul smelling urine, changes to urinary stream, flank pain, fever, and or chills. He is happy with his current voiding parameters. PREVIOUS OFFICE NOTE: Tolerated biopsy well Biopsy negative Six-month follow-up PSA with nurse-practitioner Lower urinary tract symptoms Managed with finasteride PSA 10/27 4.9 02/26--3.6 % free 14%, 07/30 2.4, 01/27 5.0, 04/29 6.2 11% Ultrasound of bladder shows 70 g prostate Prostate Biopsy 04/29 [facility] Medical History Spontaneous pneumothorax Hypertension Review of Systems Const Reports as per HPI Eyes Reports no additional complaints ENT Reports no additional complaints Card Reports as per HPI Resp Reports no additional complaints GI Reports no additional complaints Reports as per HPI Musc Reports no additional complaints Neuro Reports no additional complaints Psych Reports no additional complaints Endo Reports no additional complaints Real/Lymph Reports no additional complaints Aller/Immun Reports no additional complaints Physical Exam Const General: cooperative, healthy appearing, comfortable, no acute distress, well developed, alert and awake Nutritional Appearance: thin Orientation/consciousness: patient oriented x3 HEENT Head: Yes normal to inspection, Yes normocephalic and Yes atraumatic Ears: hearing grossly normal bilaterally Eyes General: appearance normal, both eyes and all related structures Neck Neck: Yes normal visual inspection and Yes trachea midline Chest Chest palpation & inspection: normal inspection of the chest Resp Effort & Inspection: normal respiratory effort and able to speak in complete sentences Cardio Rate: regular rate GI Inspection: Yes normal to inspection General: Yes no CVA tenderness Back/Spine/Pelvis Back: no CVA tenderness Skin General skin exam: no rashes or lesions noted Neuro General: patient oriented x3 Extrem General: Yes normal to inspection Psych Appearance: grossly normal and well kempt Mental Status: mental status grossly normal Speech and movement: Normal speech and movement present and Clear speech present Affect: normal affect Attitude: cooperative Thought process: Normal thought process present Thought content: Normal thought content present Insight: Fair insight present (Psych) Judgement: Fair judgement present (Psych) Results AMB Urinalysis, Automated UA Leukoctes 0 Raheem/uL Last Edit by YOLI Gauthier on 02/28/25 11:43 UA Nitrite Negative Last Edit by YOLI Gauthier on 02/28/25 11:43 UA Urobilinogen 3.5 mg/dL Last Edit by YOLI Gauthier on 02/28/25 11:4 3 UA Protein 0 mg/dL Last Edit by YOLI Gauthier on 02/28/25 11:43 UA pH 7.0 Last Edit by YOLI Gauthier on 02/28/25 11:43 UA Blood 0 David/uL Last Edit by YOLI Gauthier on 02/28/25 11:43 UA Specific [place] 1.010 Last Edit by YOLI Gauthier on 02/28/25 11: 43 UA Ketone Negative Last Edit by YOLI Gauthier on 02/28/25 11:43 UA Bilirubin 0 mg/dL Last Edit by Brook Smiley [facility] on 02/28/25 11:43 UA Glucose 0 mg/dL Last Edit by Brook Smiley [facility] on 02/28/25 11:43 Results Reviewed Results Reviewed: Laboratory Last Values Urine pH (Auto) 7.0 02/28/25 11:40 Specific [place] (Auto) 1.010 02/28/25 11:40 Urine Protein (Auto) 0 mg/dL 02/28/25 11:40 Glucose (UA)(Auto) 0 mg/dL 02/28/25 11:40 Urine Ketones (Auto) Negative 02/28/25 11:40 Urine Blood (Auto) 0 David/uL 02/28/25 11:40 Urine Nitrite (Auto) Negative 02/28/25 11:40 Urine Bilirubin (Auto) 0 mg/dL 02/28/25 11:40 Urine Urobilinogen (Auto) 3.5 mg/dL 02/28/25 11:40 Leukocyte Esterase (Auto) 0 Raheem/uL 02/28/25 11:40 Assessment & Plan Assessment & Plan (1) Elevated PSA: Code(s): R97.20 - Elevated prostate specific antigen [PSA] Category: Medical Plan In office urinalysis results reviewed with the patient today; as noted above. Recent PSA results reviewed with the patient today; as noted above. Continue finasteride; refill provided. We discussed continuation of elevated PSA; we discussed potential causes; we discussed further treatment options and risks and benefits of these treatment options. Will obtain prostate MRI. Will obtain redraw of PSA. He currently denies any bothersome urinary issues. He reports be happy with current voiding parameters. Follow-up in 3 months with imaging and labs; or sooner with any issues, concerns, and or questions. Orders: Orders MR Prostate wo/w con Today R97.20 - Elevated prostate specific antigen [PSA] PSA,Total (Free>4and<10) 3 Months R97.20 - Elevated prostate specific antigen [PSA] AMB Urinalysis Automated Today Z13.9 - Encounter for screening, unspecified Medications: Refilled finasteride 5 mg PO DAILY 90 tabs 3RF 90 days N32.0 - Bladder-neck obstruction Patient Instructions: The patient had an opportunity to ask questions regarding the treatment plan. All questions were answered. Physical exam, labs, and imaging were discussed and reviewed in detail. As well as risks, benefits, and discussion of treatment choices. No major barriers to understanding were identified. The patient expressed understanding and agreement with the above treatment plan. The patient was made aware they should contact our office by phone for worsening of their current condition, the appearance of new symptoms, or with any questions or concerns. Compliance is encouraged with any medications and follow up testing that is ordered. It is a privilege to be allowed the opportunity to participate in? your urological care.? Again, if you have any questions or concerns If you have any questions or concerns please do not hesitate to contact me. The office is [phone]. This note is constructed using voice recognition software. While every effort has been made to ensure accuracy cardiac care nurse errors may have been included. Yours sincerely, QUAN Hernandez Coding Level of Care Code Est Pt Level 3 (50738) Complex EM visit Add On G2211 Diagnoses Elevated PSA R97.20
--- OUTSIDE RECORDS SUMMARY | 2025-02-28 12:41 | XMS_ITS | Clinical Summary ---
Author Organization [address] Address [address] [place] [address] Phone Care Team Providers Care Manager Web Application Name Role Phone Joan Rich MD Primary Care Provider [phone] Allergies Active Allergy Reactions Criticality Noted Date Comments Cat Dander 12/27/2024 Medications fluticasone propion-salmete roL (ADVAIR DISKUS) 100-50 mcg/dose diskus inhaler Inhale 1 puff by mouth 2 (two) times a day. Rinse mouth with water after use to reduce aftertaste and incidence of candidiasis. Do not swallow. Active amitriptyline (ELAVIL) 10 mg tablet Take by mouth at bedtime. Active amLODIPine (NORVASC) 5 mg tablet Take by mouth 1 (one) time each day. Active finasteride (PROSCAR) 5 mg tablet Take 1 tablet (5 mg total) by mouth 1 (one) time each day. Do not crush, chew, or split. Active ibuprofen (ADVIL,MOTRIN) 200 mg tablet Take by mouth every 6 (six) hours if needed. Active MULTIVITAMIN ORAL Take by mouth. Activ e albuterol HFA (PROAIR HFA ; PROVENTIL HFA ; VENTOLIN HFA) 90 mcg/actuation inhaler Inhale 2 puffs by mouth every 6 (six) hours if needed for wheezing. Active Encounters Date Type Department Care Team Description 12/27/2024 Telephone Gastroenterology - [address] [address] Jacinto Elkins MD from Last 3 Months Social History Tobacco Use Types Packs/Day Years Used Date Smoking Tobacco: Never Assessed Sex and Gender Information Value Date Recorded Sex Assigned at Not on file Legal Sex Male 8:29 AM EDT Gender Identity Not on file Sexual Orientation Not on file Plan of Treatment Upcoming Encounters Date Type Department Care Team ([facility] st Contact Info) Description 04/13/2025 8:30 AM EDT Appointment [facility] Endoscopy [address] [place] [phone] Columba Humphreys MD [address] [address] Health Maintenance Due Date Last Done Comments DTaP,Tdap,and Td Vaccines (1 - Tdap) 1981 Pneumococcal Vaccine: 50+ Ye ars (1 of 1 - PCV) 2012 Zoster Vaccines (1 of 2) 2012 COVID-19 Vaccine (1 - 2023-2 5 season) 2024 Depression Screening 07/07/2024 Cholesterol Screening (Lipid Panel) 12/27/2024 Colorectal Cancer Screening: Colonoscopy 12/27/2024 HIV Screening 12/27/2024 Hepatitis C Screening 12/27/2024 Social Influencers of Health Screening 12/27/2024 Influenza Vaccine (#1) 2025 RSV Immunization Adult Patie nts (1 - 1-dose 75+ series) 2037 HIB Vaccines Aged Out No longer eligi ble based on patient's age to complete this topic HPV Vaccines Aged Out No longer eligi ble based on patient's age to complete this topic Hepatitis A Vaccines Aged Out No long er eligible based on patient's age to complete this topic Hepatitis B Vaccines Aged Out No long er eligible based on patient's age to complete this topic IPV Vaccines Aged Out No longer eligi ble based on patient's age to complete this topic MMR Vaccines Aged Out No longer eligi ble based on patient's age to complete this topic Meningococcal ACWY Vaccine Aged Out N o longer eligible based on patient's age to complete this topic Meningococcal B Vaccine Aged Out No l onger eligible based on patient's age to complete this topic RSV Immunization Patients Un manfred 20 months Aged Out No longer eligible b ased on patient's age to complete this topic Varicella Vaccines Aged Out No longer eligible based on patient's age to complete this topic Insurance [facility] Care Teams Manager Web Application Relationship Specialty Start Date End Date Joan Rich MD [address] [place] [address] PCP - General Internal Medicine 12/27/24
== END 2025-02-28 11:56 | disposition home or self-care (01) ==
LOC: HO.HUSH 11:18
PROVIDERS: PCP Internal Medicine; Visit Provider Nurse Practitioner Family
DX: Z13.9 Encounter for screening, unspecified (principal); R97.20 Elevated prostate specific antigen [PSA]
CPT/HCPCS: 99213; G2211

== ENCOUNTER → 2025-02-28 11:18 | Outpatient (BNVA) | payer OTHER, SELFPAY | PROVIDERS: PCP Internal Medicine; Visit Provider Nurse Practitioner Family | DX: R97.20 Elevated prostate specific antigen [PSA] (principal) | CPT/HCPCS: 81003; 99212 ==

== ENCOUNTER 2025-04-28 06:51 | Outpatient (REF) | payer OTHER, SELFPAY ==
--- OUTSIDE RECORDS SUMMARY | 2025-04-28 06:55 | XMS_ITS | Encounter Summary ---
Author Organization [facility] Address [id number] [place] [phone] Care Team Providers Care Clinical Support Associate Name Role Phone Joan Rich MD Primary Care Provider [phone] Encounter Details Date Type Department Care Team (Late st Contact Info) Description 04/15/2025 Results Follow-Up Gastroenterology - [address] [phone] Columba Humphreys MD [address] [place] [id number] Social History Tobacco Use Types Packs/Day Years Used Date Smoking Tobacco: Former Cigarettes Smokeless Tobacco: Never Alcohol Use Standard Drinks/Week Comments Not Currently 0 (1 standard drink = 0.6 oz pur e alcohol) Interpersonal Safety Answer Date Record ed Physical Abuse Unrecognized value 04/13/2025 Verbal Abuse Unrecognized value 04/13/2025 Sex and Gender Information Value Date Recorded Sex Assigned at Not on file Legal Sex Male 8:29 AM EDT Gender Identity Not on file Sexual Orientation Not on file documented as of this encounter Progress Notes * Columba Humphreys MD - 04/15/2025 2:01 PM EDT Please call patient and let him know that 3 of the 4 colon polyps removed were precancerous. Because of the number of polyps and the fact that one was > 1 cm repeat colonoscopy is recommended in 3years. documented in this encounter Plan of Treatment Not on file documented as of this encounter Goals Goal Patient Goal Type Associated Problems Recent Progress Patient-Stated? Author Autoalyssa rosales Goal Care Plan Autogenerated Problem No Key Victor documented as of this encounter Visit Diagnoses Not on filedocumented in this encounter Additional Health Concerns Active Problems Noted Date Diagnosed Date Autogenerated Problem 04/04/2025 documented as of this encounter Care Teams Clinical Support Associate Relationship Specialty Start Date End Date Joan Rich MD [address] [place] [address] [place] PCP - General Internal Medicine 12/27/24 documented as of this encounter
--- OUTSIDE RECORDS SUMMARY | 2025-04-28 06:55 | XMS_ITS | Clinical Summary ---
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 Active polyethylene glycol (Golytely) 236-22.74-6.74 -5.86 gram solution Take 4L by mouth once for one dose. May substitue any PEG. Starting at 2PM the day before your procedure drink 1 8oz glasses at your own pace until you complete half of the gallon. Finish 2nd half of the gallon at 8PM. 4000 mL 5 Active bisacodyL (DULCOLAX) 5 mg EC tablet Take 2 tablets by mouth right before beginning bowel prep. See instructions provided by the office 2 tablet 5 Active Incruse Ellipta 62.5 mcg/actuation inhalation INHALE ONE PUFF BY MOUTH EVERY 24 HOURS 4 Active Encounters Date Type Department Care Team Description 04/15/2025 Results Follow-Up Gastroenterology - [address] [place] [facility] [address] [place] [id number] Columba Humphreys MD 04/13/2025 8:41 AM EDT Anesthesia Event [facility] Endoscopy [address] [place] [phone] Elgin Segal DO 04/13/2025 8:05 AM EDT - 04/13/2025 11:59 PM EDT Hospital Encounter [facility] Endoscopy [address] [place] [phone] Columba Humphreys MD Spencer, Mark A, MD McAdams, Megan, CRNA Hx of colonic polyps Discharge Disposition: Home or Self Care from Last 3 Months Surgical History Surgery Date Site/Laterality Comments COLONOSCOPY LUNG SURGERY partial wedge, spontaneous pneumothorax CARDIAC SURGERY Medical History Medical History Date Comments Hypertension Emphysema lung (CMS/HCC V24, CMS/HCC V28) Colon polyp Hepatitis C treated Social History Tobacco Use Types Packs/Day Years Used Date Smoking Tobacco: Former Cigarettes Smokeless Tobacco: Never Tobacco Cessation:Counseling Given: Not Answered Alcohol Use Standard Drinks/Week Comments Not Currently 0 (1 standard drink = 0.6 oz pur e alcohol) Interpersonal Safety Answer Date Record ed Physical Abuse Unrecognized value 04/13/2025 Verbal Abuse Unrecognized value 04/13/2025 Sex and Gender Information Value Date Recorded Sex Assigned at Not on file Legal Sex Male 8:29 AM EDT Gender Identity Not on file Sexual Orientation Not on file Obstetrics History Last Filed Vital Signs Vital Sign Reading Time Taken Comments Blood Pressure 117/88 04/13/2025 9:27 AM EDT Pulse 74 04/13/2025 9:27 AM EDT Temperature 36.6 C (97.9 F) 04/13/2025 8:20 AM EDT Respiratory Rate 15 04/13/2025 9:27 AM EDT Oxygen Saturation 100% 04/13/2025 9:27 AM EDT Inhaled Oxygen Concentration - - Weight 54.9 kg (121 lb) 04/13/2025 8:20 AM EDT Height 170.2 cm (5' 7 ) 04/13/2025 8:20 AM EDT Body Mass Index 18.95 04/13/2025 8:20 AM EDT Plan of Treatment Health Maintenance Due Date Last Done Comments Pneumococcal Vaccine: 50+ Years (2 of 2 - PCV) 07/22/2021 07/22/2020 Depression Screening 07/07/2024 Cholesterol Screening (Lipid Panel) 12/27/2024 HIV Screening 12/27/2024 Hepatitis C Screening 12/27/2024 Social Influencers of Health Screening 12/27/2024 COVID-19 Vaccine ( season) 2025 01/16/2022, 05/28/2021, 11/28/2020, Additional history exists Hypertension/CHF/CAD Annual BMP Blood Test 04/13/2025 Colorectal Cancer Screening: Colonoscopy 04/13/2028 04/13/2025 DTaP,Tdap,and Td Vaccines (3 - Td or Tdap) 10/18/2031 10/17/2021, 02/21/2011 Hepatitis A Vaccines Completed 02/09/2015, 08/12/2014, 05/16/2008, Additional history exists Hepatitis B Vaccines Completed 02/09/2015, 09/09/2014, 08/12/2014, Additional history exists RSV Immunization Adult Patients Completed 01/11/2024 Zoster Vaccines Completed 02/24/2025, 07/0 01/2024, 12/22/2021 Influenza Vaccine Completed 04/12/2025, , 05/28/2021, Additional history exists HIB Vaccines Aged Out No longer eligi [...] to complete this topic RSV Immunization Patients Under 20 months Aged Out No longer eligible based on patient's age to complete this topic Varicella Vaccines Aged Out No longer eligible based on patient's age to complete this topic Goals Goal Patient Goal Type Associated Problems Recent Progress Patient-Stated? Author Autogenera bobby Goal Care Plan Autogenerated Problem No Key Victor Procedures Procedure Name Priority Date/Time Associated Diagnosis Comments COLONOSCOPY Routine 04/13/2025 9:06 AM EDT Hx of colonic polyps TISSUE EXAM Routine 04/13/2025 8:54 AM EDT Hx of colonic polyps from Last 3 Months Results * COLONOSCOPY Anesthesia - MAC; [facility] ENDOSCOPY (04/13/2025 9:06 AM EDT) Anatomical Region Laterality Modality Endoscopy 04/13/2025 8:42 AM EDT Impressions 04/13/2025 9:08 AM EDT - The examined portion of the ileum was normal. - Two 2 to 3 mm polyps in the sigmoid colon, removed with a cold snare. Resected and retrieved. - One 14 mm polyp at 20 cm proximal to the anus, removed with a hot snare. Resected and retrieved. Clip (MR conditional) was placed. - One 9 mm polyp in the rectum, removed with a hot snare. Resected and retrieved. - Internal hemorrhoids. Recommendation: - Await pathology results. - Repeat colonoscopy for surveillance based on pathology results. Narrative 04/13/2025 9:08 AM EDT [facility] GI Patient Name: Eddy Gallagher Procedure Date: 04/13/2025 8:42 AM Date of : 1960 Age: 64 Gender: Male Note Status: Finalized Attending MD: Columba Humphreys MD, Procedure Date No Time: 04/13/2025 Procedure: Colonoscopy Indications: High risk colon cancer surveillance: Personal history of non-advanced adenoma Providers: Columba Humphreys MD Referring MD: Joan Rich MD Medicines: Propofol per Anesthesia Complications: No immediate complications. Estimated Blood Loss: Estimated blood loss: none. Procedure: Pre-Anesthesia Assessment: - ASA Grade Assessment: III - A patient with severe systemic disease. After I obtained informed consent, the scope was passed under direct vision. Throughout the procedure, the patient's blood pressure, pulse, and oxygen saturations were monitored continuously.The Colonoscope was introduced through the anus and advanced to the terminal ileum. The colonoscopy was performed without difficulty. The patient tolerated the procedure well. The quality of the bowel preparation was excellent. Findings: The perianal and digital rectal examinations were normal. The terminal ileum appeared normal. Two sessile polyps were found in the sigmoid colon. The polyps were 2 to 3 mm in size. These polyps were removed with a cold snare. Resection and retrieval were complete. A 14 mm polyp was found at 20 cm proximal to the anus. The polyp was pedunculated. The polyp was removed with a hot snare. Resection and retrieval were complete. To prevent bleeding after the polypectomy, one hemostatic clip was successfully placed (MR conditional). There was no bleeding during, or at the end, of the procedure. A 9 mm polyp was found in the rectum. The polyp was sessile. The polyp was removed with a hot snare. Resection and retrieval were complete. Internal hemorrhoids were found during retroflexion. The hemorrhoids were Grade I (internal hemorrhoids that do not prolapse). Procedure Code(s): --- Professional --- 37110, Colonoscopy, flexible; with removal of tumor(s), polyp(s), or other lesion(s) by snare technique Diagnosis Code(s): --- Professional --- Z86.010, Personal history of colonic polyps D12.5, Benign neoplasm of sigmoid colon D12.8, Benign neoplasm of rectum CPT copyright 2020 [employer]. All rights reserved. The codes documented in this report are preliminary and upon board worker review may be revised to meet current compliance requirements. Columba Humphreys MD 04/13/2025 9:08:27 AM This report has been signed electronically.Columba Humphreys MD Number of Addenda: 0 Note Initiated On: 04/13/2025 8:42 AM Scope In: Scope Out: Endoscopy Department at [facility] - [address] [place] [id number] Procedure Note Columba Humphreys MD - 04/13/2025 [facility] GI Patient Name: Eddy Gallagher Procedure Date: 04/13/2025 8:42 AM Date of : 1960 Age: 64 Gender: Male Note Status: Finalized Attending MD: Columba Humphreys MD, Procedure Date No Time: 04/13/2025 Procedure: Colonoscopy Indications: High risk colon cancer surveillance: Personalhistory of non-advanced adenoma Providers: Columba Humphreys MD Referring MD: Joan Rich MD Medicines: Propofol per Anesthesia Complications: No immediate complications. Estimated Blood Loss: Estimated blood loss: none. Procedure: Pre-Anesthesia Assessment: - ASA Grade Assessment: III - A patient with severe systemic disease. After I obtained informed consent, the scope was passed under direct vision. Throughout theprocedure, the patient's blood pressure, pulse, and oxygen saturations were monitored continuously.The Colonoscope was introduced through the anus and advanced to the terminal ileum. The colonoscopy was performed without difficulty. The patient tolerated the procedure well. The quality of the bowel preparation was excellent. Findings: The perianal and digital rectal examinations were normal. The terminal ileum appeared normal. Two sessile polyps were found in the sigmoid colon. The polyps were 2 to 3 mm in size. These polypswere removed with a cold snare. Resection and retrieval were complete. A 14 mm polyp was found at 20 cm proximal to theanus. The polyp was pedunculated. The polyp was removedwith a hot snare. Resection and retrieval were complete.To prevent bleeding after the polypectomy, onehemostatic clip was successfully placed (MR conditional).There was no bleeding during, or at the end, of the procedure. A 9 mm polyp was found in the rectum. The polyp was sessile. The polyp was removed with a hot snare. Resection and retrieval were complete. Internal hemorrhoids were found duringretroflexion. The hemorrhoids were Grade I (internal hemorrhoids that do not prolapse). Procedure Code(s): --- Professional --- 42549, Colonoscopy, flexible; with removal of tumor(s), polyp(s), or other lesion(s) by snare technique Diagnosis Code(s): --- Professional --- Z86.010, Personal history of colonic polyps D12.5, Benign neoplasm of sigmoid colon D12.8, Benign neoplasm of rectum CPT copyright 2020 [employer]. All rights reserved. The codes documented in this report are preliminary and upon board worker reviewmay be revised to meet current compliance requirements. Columba Humphreys MD 04/13/2025 9:08:27 AM This report has been signed electronically.Columba Humphreys MD Number of Addenda: 0 Note Initiated On: 04/13/2025 8:42 AM Scope In: Scope Out: Endoscopy Department at [facility] - [address] [place] [phone] IMPRESSION: - The examined portion of the ileum was normal. - Two 2 to 3 mm polyps in the sigmoid colon,removed with a cold snare. Resected and retrieved. - One 14 mm polyp at 20 cm proximal to the anus, removed with a hot snare. Resected and retrieved.Clip (MR conditional) was placed. - One 9 mm polyp in the rectum, removed with a hot snare. Resected and retrieved. - Internal hemorrhoids. Recommendation: - Await pathology results. - Repeat colonoscopy for surveillance based on pathology results. us Columba Humphreys MD GI~PROCEDURE ORDERABLES Final Result * Tissue exam (04/13/2025 8:54 AM EDT) Final Diagnosis A. Large Intestine, Sigmoid Colon, polyps x2: - Tubular adenoma. - Hyperplastic polyp. B. Large Intestine, Left/Descending Colon, polyp x1 at 20 cm: - Tubular adenoma. C. Large Intestine, Rectum, polyp x1: - Tubular adenoma. 04/14/2025 11:08 AM EDT [facility] at 1108 EDT Gross Description A. Large Intestine, Sigmoid Colon, polypX2: Labeled Sig colon polyp x 2 . Received in formalin are two soft to rubbery, bagley-pink to red, polypoid tissue fragments, approximately measuring 0.5 cm and 0.7 cm in greatest diameters, inked green at the margin, which are wrapped in paper and submitted in toto in one cassette, two pieces, multiple levels. B. Large Intestine, Left/Descending Colon, polypX1 at 20 cm: Labeled desc colon polyp x 1 a . Received in formalin, is an approximately 1.2 x 0.7 x 0.6 cm rubbery, bagley-red, polypoid tissue, which is inked green at the base, serially sectioned, wrapped in paper and submitted in entirety in two cassettes, four pieces, multiple levels. 1-inked end sections (two pieces) 2-inked central sections (two pieces) C. Large Intestine, Rectum, polypX1: Labeled LI rectum polyp x 1 . Received in formalin, is an approximately 0.6 cm in greatest diameter soft to rubbery, bagley-pink to red, polypoid tissue fragment, inked green at the margin, and bisected. The specimen is wrapped in paper and entirely submitted in toto in one cassette, two pieces, multiple levels. hs/DG 04/14/2025 11:08 AM EDT [facility] Disclaimer Unless otherwise specified, all tissue is 10% NB formalin fixed and paraffin embedded. 04/14/2025 11:08 AM EDT [facility] Tissue Sigmoid colon structure / Unknown 04/13/2025 8:54 AM EDT 04/13/2025 11:04 AM EDT Tissue specimen (specimen) Descending colon structure / Unknown 04/13/2025 9:03 AM EDT 04/13/2025 11:04 AM EDT Tissue specimen (specimen) Rectum structure / Unknown 04/13/2025 9:03 AM EDT 04/13/2025 11:04 AM EDT Columba Humphreys MD LAB PATHOLOGY ORDERABLES Final Result [facility] [address] [place] [address], from Last 3 Months Additional Health Concerns Active Problems Noted Date Diagnosed Date Autogenerated Problem 04/04/2025 Insurance [facility] Care Teams Rubber Tile Floor Layer Relationship Specialty Start Date End Date Joan Rich MD [address] [place] [address] PCP - General Internal Medicine 12/27/24
[2025-04-28 08:40] LABS: PSA,Total (Free>4and<10) 7.70 ng/mL (0.00-4.00)
[2025-04-29 13:42] LABS: Free Prostate Spec Ag 0.7 ng/mL; Percent Free Prostate Spec Ag 11 % (calc) (>25)
== END 2025-04-28 06:52 | disposition home or self-care (01) ==
LOC: HO.LAB 06:51
PROVIDERS: PCP Internal Medicine; Visit Provider Nurse Practitioner Family
DX: R97.20 Elevated prostate specific antigen [PSA] (principal)
CPT/HCPCS: 36415; 84153; 84154

== ENCOUNTER → 2025-05-23 08:00 | Outpatient (BNV) | payer OTHER, SELFPAY | PROVIDERS: PCP Internal Medicine; Visit Provider Radiology Diagnostic Radiology | DX: R97.20 Elevated prostate specific antigen [PSA] (principal) | CPT/HCPCS: 72197 ==

== ENCOUNTER 2025-05-23 08:03 | Outpatient (REF) | payer OTHER, SELFPAY ==
--- NOTE | ~2025-05-23 | MR_ITS ---
EXAMINATION: MR PROSTATE WITHOUT THEN WITH IV CONTRAST HISTORY: R97.20 - Elevated prostate specific antigen [PSA] TECHNIQUE: 1.5T body coil survey of the pelvis was performed. Phase array coil imaging of the prostate was performed in multiplanar high resolution axial, coronal, sagittal fast spin echo T2 and axial T1 weighted imaging sequences. Axial diffusion imaging at intermediate and high field performed with ADC mapping. Next, 5 mL Gadavist was given by intravenous infusion, and dynamic axial imaging performed. 3-D reconstructions and post-processing were not performed as no discrete lesion was identified. COMPARISON: There are no prior studies available for comparison. CLINICAL DATA: Most recent PSA: 7.70 ng/mL on 04/28/2025. 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 FINDINGS: Prostate size: 3.5 x 3.9 x 3.5 cm. Calculated prostate volume is 24.8 mL. Hemorrhage: None. Transitional Zone: There is mild to moderate heterogeneous nodular hypertrophy of the transitional zone. Peripheral Zone: There are scattered linear T2 hyperintensities in the peripheral zone which can be seen in the setting of prostatitis or scarring. No discrete focus of abnormal signal intensity is identified. There are no foci of restricted diffusion. Seminal Vesicles/Ejaculatory Ducts: Symmetric and normal in signal and caliber. Pelvic Lymph Nodes: No obturator or internal iliac lymph nodes meeting size criteria for adenopathy. Marrow Signal: Normal marrow signal and enhancement without focal lesion identified. MR/MR Prostate wo/w con IMPRESSION: No discrete focus of abnormal signal intensity is identified to suggest clinically significant prostate carcinoma. PI-RADS 2: Low (clinically significant cancer is unlikely to be present) PI-RADS Assessment Categories PI-RADS 1: Very low (clinically significant cancer is highly unlikely to be present) PI-RADS 2: Low (clinically significant cancer is unlikely to be present) PI-RADS 3: Intermediate (the presence of clinically significant cancer is equivocal) PI-RADS 4: High (clinically significant cancer is likely to be present) PI-RADS 5: Very high (clinically significant cancer is highly likely to be present) [employer]. MR Prostate Imaging Reporting and Data System version 2.1. [email or web address] Electronically signed by: Salvador Cohen MD 05/25/2025 07:10 AM EST
== END 2025-05-23 08:04 | disposition home or self-care (01) ==
LOC: HO.MRI 08:03
PROVIDERS: PCP Internal Medicine; Visit Provider Nurse Practitioner Family
DX: R97.20 Elevated prostate specific antigen [PSA] (principal)
CPT/HCPCS: 72197; 76377; A9585

== ENCOUNTER 2025-05-31 12:58 | Outpatient (AMB) | payer OTHER, SELFPAY ==
--- NOTE | 2025-05-31 13:05 | A.OFFVIS_ITS ---
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 Rich. He has a past medical history of hypertension and spontaneous pneumothorax. He is being followed up on today via video telehealth for his elevated PSA and lower urinary tract symptoms. In discussion with the patient today he reports to be doing and feeling well. He discusses he was unable to make it to yesterday's appointment as he has had car troubles. Most recent prostate MRI results reviewed with the patient today. 05/31 prostate measures approximately 25 mL. There are scattered linear T2 hyperintensities in the peripheral zone which can be seen in the setting of prostatitis or scarring. No discrete focus of abnormal signal intensity is identified. There is no foci or restricted diffusion. Seminal vesicles and ejaculatory ducts are symmetrical and normal in signal and caliber. No discrete focus of abnormal signal intensity is identified to suggest clinically significant prostate carcinoma. PI-RADS 2. PSAs are as follows: 10/27 4.9, 02/26 3.6 % free 14%, 07/30 2.4, 01/27 5.0, 02/28 7.2 % free PSA 10%, 04/30, 7.7 % free PSA 11%. He reports compliance with finasteride as prescribed. He does report noting increased episodes of nocturia, urinary urgency and urinary frequency. He reports he has decreased the amount of caffeine he had been consuming and does feel this has been helpful. Of note, patient underwent prostate biopsy with Dr. Garza 04/29 [facility]. Previous workup has also included a retroperitoneal ultrasound 12/27 noting the bladder is well distended and normal. Pre void bladder volume is approximately 315 mL postvoid bladder volume is approximately 10 mL. Prostate is enlarged with a volume of 72 mL. Right kidney with no hydronephrosis. 3 mm nonobstructing calculus is in the upper to mid pole. Lateral midpole cyst measures 4 x 3 x 4 mm. Left kidney with no calculi, lesions, and or hydronephrosis noted. We discussed at length potential causes of increase in PSA. We discussed further treatment options and risks and benefits of these treatment options. He denies incontinence, hematuria, dysuria, foul smelling urine, changes to urinary stream, flank pain, fever, and or chills. He is happy with his current voiding parameters. PREVIOUS OFFICE NOTE: Tolerated biopsy well Biopsy negative Six-month follow-up PSA with nurse-practitioner Lower urinary tract symptoms Managed with finasteride PSA 10/27 4.9 02/26--3.6 % free 14%, 07/30 2.4, 01/27 5.0, 04/29 6.2 11% Ultrasound of bladder shows 70 g prostate Prostate Biopsy 04/29 [facility] Medical History Spontaneous pneumothorax Hypertension Review of Systems Const All systems reviewed & are unremarkable except as noted in HPI and below Physical Exam Const General: cooperative, healthy appearing, comfortable, no acute distress, well developed, alert and awake Orientation/consciousness: patient oriented x3 Resp Effort & Inspection: normal respiratory effort and able to speak in complete sentences Neuro General: patient oriented x3 Psych Appearance: well kempt Speech and movement: Clear speech present Attitude: cooperative Thought process: Normal thought process present Thought content: Normal thought content present Insight: Fair insight present (Psych) Judgement: Fair judgement present (Psych) Telehealth Telehealth Telehealth Platform: Telephone Location of provider rendering services: practice address Location of patient: address on file Patient Identification confirmed using: Name, : Yes Telehealth method: video Patient verbally consented to treatment: Yes Patient verbally consented to billing insurance company: Yes Patient informed of any privacy concerns related to visit: Yes Minutes spent on Phone/Video with Pt.: 20 Results Reviewed Results Reviewed: Date of Service: 05/23/25 Procedure(s): MR Prostate wo/w con FINDINGS: Prostate size: 3.5 x 3.9 x 3.5 cm. Calculated prostate volume is 24.8 mL. Hemorrhage: None. Transitional Zone: There is mild to moderate heterogeneous nodular hypertrophy of the transitional zone. Peripheral Zone: There are scattered linear T2 hyperintensities in the peripheral zone which can be seen in the setting of prostatitis or scarring. No discrete focus of abnormal signal intensity is identified. There are no foci of restricted diffusion. Seminal Vesicles/Ejaculatory Ducts: Symmetric and normal in signal and caliber. Pelvic Lymph Nodes: No obturator or internal iliac lymph nodes meeting size criteria for adenopathy. Marrow Signal: Normal marrow signal and enhancement without focal lesion identified. IMPRESSION: No discrete focus of abnormal signal intensity is identified to suggest clinically significant prostate carcinoma. PI-RADS 2: Low (clinically significant cancer is unlikely to be present) PI-RADS Assessment Categories PI-RADS 1: Very low (clinically significant cancer is highly unlikely to be present) PI-RADS 2: Low (clinically significant cancer is unlikely to be present) PI-RADS 3: Intermediate (the presence of clinically significant cancer is equivocal) PI-RADS 4: High (clinically significant cancer is likely to be present) PI-RADS 5: Very high (clinically significant cancer is highly likely to be present) Assessment & Plan Assessment & Plan (1) Elevated PSA: Code(s): R97.20 - Elevated prostate specific antigen [PSA] Category: Medical (2) Bladder outlet obstruction: Code(s): N32.0 - Bladder-neck obstruction Category: Medical (3) Urinary frequency: Code(s): R35.0 - Frequency of micturition Category: Medical (4) History of urinary hesitancy: Code(s): Z87.898 - Personal history of other specified conditions Category: Medical (5) Nocturia: Code(s): R35.1 - Nocturia Category: Medical Plan Most recent PSA results reviewed the patient today; as noted above. Most recent prostate MRI results reviewed with the patient today; as noted above. We discussed importance of limiting fluids 2-3 hours prior to bed to decrease episodes of nocturia. We did discussed worsening symptoms. We discussed bladder triggers and irritants. We did discuss potential causes of increase in PSA and further treatment options and risks and benefits of these treatment options. All questions were answered. Continue finasteride. Will obtain PSA in 3-4 months Follow-up in 3-4 months with PSA and PVR; or sooner with any issues, concerns, and or questions. Orders: Orders PSA,Total (Free>4and<10) 3 Months R97.20 - Elevated prostate specific antigen [PSA] Patient Instructions: The patient had an opportunity to ask questions regarding the treatment plan. All questions were answered. Physical exam, labs, and imaging were discussed and reviewed in detail. As well as risks, benefits, and discussion of treatment choices. No major barriers to understanding were identified. The patient expressed understanding and agreement with the above treatment plan. The patient was made aware they should contact our office by phone for worsening of their current condition, the appearance of new symptoms, or with any questions or concerns. Compliance is encouraged with any medications and follow up testing that is ordered. It is a privilege to be allowed the opportunity to participate in? your urological care.? Again, if you have any questions or concerns If you have any questions or concerns please do not hesitate to contact me. The office is [phone]. This note is constructed using voice recognition software. While every effort has been made to ensure accuracy astrobiologist errors may have been included. Yours sincerely, QUAN Hernandez Coding Level of Care Code Tele Est Pt Level 3 (93852) Complex visit Add On G2211 Diagnoses Elevated PSA R97.20 Bladder outlet obstruction N32.0 Urinary frequency R35.0 History of urinary hesitancy Z87.898 Nocturia R35.1
== END 2025-05-31 14:05 | disposition home or self-care (01) ==
LOC: HO.HUSH 12:58
PROVIDERS: PCP Internal Medicine; Visit Provider Nurse Practitioner Family
DX: R97.20 Elevated prostate specific antigen [PSA] (principal); N32.0 Bladder-neck obstruction; R35.0 Frequency of micturition; Z87.898 Personal history of other specified conditions; R35.1 Nocturia
CPT/HCPCS: 99213; G2211